=== PATIENT | female | born 1950 | race Caucasian/White ===

== ENCOUNTER 2022-06-18 16:39 | Emergency (ER) | payer OTHER, SELFPAY ==
--- NOTE | ~2022-06-18 | CT_ITS ---
EXAMINATION: CT facial bones wo con DATE: 06/18/2022 17:32 INDICATION: Head injury. TECHNIQUE: Computed tomography (CT) of the facial bones and maxillofacial region was performed withou t intravenous contrast. Automated exposure control and iterative reconstruction technique were employ ed. The dose-length product was 258.98 mGy-cm. COMPARISON: None. FINDINGS: There is left periorbital soft tissue swelling. The orbits are normal. There is rightward d eviation of the nasal septum. There is mild mucosal thickening in the ethmoid sinuses. No fracture. IMPRESSION: 1. No fracture. Reviewed, dictated and finalized at location A. IMPRESSION: 1. No fracture.
--- NOTE | ~2022-06-18 | CT_ITS ---
EXAMINATION: CT brain wo con DATE: 06/18/2022 17:31 INDICATION: Head injury. TECHNIQUE: Computed tomography (CT) of the head was performed without intravenous contrast. The mA wa s adjusted according to patient size. Iterative reconstruction technique was employed. The dose-lengt h product was 605.33 mGy-cm. COMPARISON: None FINDINGS: There are scattered areas of low attenuation in the cerebral white matter. There is no intr acranial hemorrhage, acute infarction, or abnormal intracranial mass lesion. The ventricles are maxim l in size. There is mild mucosal thickening in the ethmoid sinuses. The mastoid air cells are normal. The orbits are normal. There is left periorbital soft tissue tissue swelling. IMPRESSION: 1. Mild nonspecific cerebral white matter disease, which likely represents chronic small vessel ische luis disease. Reviewed, dictated and finalized at location A. IMPRESSION: 1. Mild nonspecific cerebral white matter disease, which likely represents professor of literacy nicho small vessel ischemic disease.
--- NOTE | ~2022-06-18 | XR_ITS ---
EXAMINATION: XR knee RT 3V DATE: 06/18/2022 18:52 INDICATION: Medial right knee pain. TECHNIQUE: 3 views of right knee were obtained. COMPARISON: None. FINDINGS: There is a total right knee arthroplasty with patellar resurfacing in near-anatomic alignme nt. No fracture. No periprosthetic lucency to suggest loosening or infection. There is a small knee j oint effusion. IMPRESSION: 1. Total right knee arthroplasty in near-anatomic alignment. 2. Small right knee joint effusion. Reviewed, dictated and finalized at location A.
[2022-06-18 16:40] VITALS: BP 169/73; PULSE 83; RESP 20; TEMP 36.6; O2SAT 100
[2022-06-18 18:37] VITALS: BP 169/81; PULSE 74; RESP 16; TEMP 36.7; O2SAT 99
--- NOTE | 2022-06-18 18:39 | ED.HEATRA ---
HPI - Head Injury General Chief complaint: Head Injury Stated complaint: head injury Time Seen by Provider: 06/18/22 18:31 History of Present Illness HPI Narrative: Patient is a 71-year-old female here for evaluation of a fall earlier today. Patient was walking in a gymnasium who's floors were freshly waxed, and states that her foot slipped out from under her, and she fell forward, landing on her right knee, and striking the front of her face against the ground. She denies loss of consciousness. She denies blood thinner use. She has been walking since the accident. She was seen at an urgent care facility and was told to come to the ED for head imaging. She denies any headaches, changes to her visions, nausea, vomiting, fevers or chills. Her last tetanus shot was 5 years ago. Related Data Allergies Allergy/AdvReac Type Severity Reaction Status Date / Time No Known Allergies Allergy Verified 06/18/22 18:38 Review of Systems Review of Systems: Gen: Denies fevers or chills Eyes: Denies eye pain or visual change ENT: Denies congestion Respiratory: Denies shortness of breath or cough CV: Denies chest pain or palpitations GI: Denies abdominal pain nausea, emesis or diarrhea : denies burning, urgency, frequency or hematuria Musculoskeletal: Reports right knee pain. Denies back pain or muscle pain Neuro: Denies numbness, tingling, weakness or focal weakness Skin: Reports abrasion over right eyebrow Except as documented, all other systems reviewed and negative Exam Narrative: APPEARANCE: Well appearing, no pain in distress, well-nourished. Head: Patient has area of ecchymosis and swelling superior to the left eyebrow EYES: PERRLA/EOMI, conjunctivae clear NOSE: No nasal drainage EARS: External ear normal in appearance THROAT: Oropharynx is clear. Mucous membranes are moist. NECK: Supple. No adenopathy, no masses. RESPIRATORY: Airway patent, respirations nonlabored. Clear to auscultation bilaterally, no rales, rhonchi, wheezing. CARDIOVASCULAR: Regular rate and rhythm without murmurs, rubs, or gallops. ABDOMINAL: Normoactive bowel sounds. Soft, nontender, nondistended. No rebound tenderness or guarding. MUSCULOSKELETAL: Full range of motion in right knee. No edema. Tender to palpation over proximal tibia. No obvious deformity to knee. Normal gait. NEURO: Normal speech. No focal neurologic deficits. SKIN: Small abrasion over left eyebrow, no active bleeding. PSYCHIATRIC: Normal affect/mood. Course Vital Signs Vital signs: Vital Signs Temperature 97.9 F 06/18/22 16:40 Pulse Rate 83 06/18/22 16:40 Respiratory Rate 20 06/18/22 16:40 Blood Pressure 169/73 H 06/18/22 16:40 Pulse Oximetry 100 06/18/22 16:40 Oxygen Delivery Room Air 06/18/22 16:40 Temperature 98.1 F 06/18/22 18:37 Pulse Rate 74 06/18/22 18:37 Respiratory Rate 16 06/18/22 18:37 Blood Pressure 169/81 H 06/18/22 18:37 Pulse Oximetry 99 06/18/22 18:37 Oxygen Delivery Room Air 06/18/22 18:37 MDM - Head Injury MDM Narrative Medical decision making narrative: 70-year-old female here for evaluation after what sounds like a mechanical fall with head injury earlier today. She is hypertensive, vital signs otherwise normal. on exam she has bruising and swelling around her left forehead area, no laceration that requires repair. No cranial nerve abnormalities. CT brain and CT facial bones without acute findings. Obtained an x-ray of the right knee given her pain and fall, which shows nothing acute. Encouraged her to ice the area, she was given return precautions and she voiced understanding Discharge Plan Discharge Clinical Impression: Fall Patient Disposition: Home, Self-Care Condition: Stable Instructions: Antibiotic Form, Head Injury (ED) Additional Instructions: Your head CT and facial bone scan did not show anything acute. Please ice the knee, apply an mica wrap for your discomfort. Please return to the
== END 2022-06-18 19:30 | disposition home or self-care (01) ==
PROVIDERS: Emergency Provider Family Medicine
DX: S00.83XA Contusion of other part of head, initial encounter (principal); Z96.651 Presence of right artificial knee joint; W01.0XXA Fall on same level from slipping, tripping and stumbling without subsequent striking against object, initial encounter
CPT/HCPCS: 70450; 70486; 73562; 99284